=== PATIENT | male | born 1980 | race Caucasian/White ===

== ENCOUNTER 2016-12-02 23:00 | Emergency (ER) | payer OTHER ==
[~2016-12-02] VITALS: Ht 172.7 cm; Wt 63.5 kg
[2016-12-02] MEDS ORDERED: TRAZ100T4 (23:25)
[2016-12-02] MEDS ORDERED: NICO1DIS (23:25)
[2016-12-02] MEDS ORDERED: DIVA250T (23:25)
[2016-12-02] MEDS ORDERED: BUPR150T5 (23:25)
[2016-12-02] MEDS ORDERED: ACETGRA (23:25)
[2016-12-02] MEDS ORDERED: SERT-155 (23:25)
[2016-12-03] MEDS ORDERED: LIDOCAINE 2% MDV 20 ML VIAL SC ONE (00:15)
[2016-12-03] MEDS ORDERED: KEFL500C7 PO (00:53)
[2016-12-03] MEDS ORDERED: NORCO, ANEXSIA 5/325MG TABLET (HYDROcodone/ACETAMINOPHEN) PO ONE (01:00)
[2016-12-03 01:10] VITALS: BP 112/56
== END 2016-12-03 01:10 | disposition home or self-care (01) ==
LOC: M ED 23:37
DX: S41.101A Unspecified open wound of right upper arm, initial encounter (principal); S40.021A Contusion of right upper arm, initial encounter; W18.02XA Striking against glass with subsequent fall, initial encounter; Y92.019 Unspecified place in single-family (private) house as the place of occurrence of the external cause; Y93.89 Activity, other specified; Y99.9 Unspecified external cause status; F17.200 Nicotine dependence, unspecified, uncomplicated

== ENCOUNTER 2016-12-21 15:52 | Emergency (ER) | payer OTHER ==
[~2016-12-21] VITALS: Ht 172.7 cm; Wt 63.5 kg
[2016-12-21 15:52] VITALS: BP 134/83
[~2016-12-21 15:52] MED LIST: ACETGRA; BUPR150T5; DIVA250T; KEFL500C7 PO; NICO1DIS; SERT-155; TRAZ100T4
== END 2016-12-21 17:33 | disposition home or self-care (01) ==
LOC: M ED 17:30
DX: Z48.02 Encounter for removal of sutures (principal); G43.909 Migraine, unspecified, not intractable, without status migrainosus; F17.200 Nicotine dependence, unspecified, uncomplicated; Z79.899 Other long term (current) drug therapy; Z88.0 Allergy status to penicillin; Z88.6 Allergy status to analgesic agent

== ENCOUNTER → 2016-12-26 | Outpatient (CLI) | payer MEDICAID | LOC: M OUTALCOH 12:58 | PROVIDERS: ATTEND Psychiatry & Neurology Psychiatry | DX: F11.20 Opioid dependence, uncomplicated (principal); F12.20 Cannabis dependence, uncomplicated; F15.10 Other stimulant abuse, uncomplicated ==

== ENCOUNTER → 2016-12-27 | Outpatient (REF) | payer MEDICAID ==
[2016-12-27 12:49] LABS: BLOOD UREA NITROGEN 22 MG/DL (7-18); CREATININE FOR GFR 0.84 MG/DL (0.70-1.30); GLOMERULAR FILTRATION RATE > 60.0 (>60)
== END ==
LOC: M LABDRAW1 11:56
PROVIDERS: ATTEND Physical Medicine & Rehabilitation
DX: S83.241D Other tear of medial meniscus, current injury, right knee, subsequent encounter (principal); X58.XXXD Exposure to other specified factors, subsequent encounter; Y92.9 Unspecified place or not applicable; Y93.9 Activity, unspecified; Y99.9 Unspecified external cause status

== ENCOUNTER 2017-01-10 15:00 | Outpatient (RCR) | payer MEDICAID ==
[~2017-01-10 15:00] MED LIST changes: +KEFL500C17 PO; -KEFL500C7 PO; +NICO14DI24; -NICO1DIS; +TRAZ-136; -TRAZ100T4
== END 2017-01-11 ==
LOC: M OUTALCOH 15:00
PROVIDERS: ATTEND Psychiatry & Neurology Psychiatry
DX: F11.20 Opioid dependence, uncomplicated (principal); F12.20 Cannabis dependence, uncomplicated; F15.10 Other stimulant abuse, uncomplicated

== ENCOUNTER → 2017-02-11 | Outpatient (RCR) | payer MEDICAID ==
[~2017-02-11] MED LIST changes: +CIPR-249 PO; +NAPR500T3
== END ==
LOC: M OUTALCOH 01-17 14:00
PROVIDERS: ATTEND Psychiatry & Neurology Psychiatry
DX: F11.20 Opioid dependence, uncomplicated (principal); F12.20 Cannabis dependence, uncomplicated; F15.10 Other stimulant abuse, uncomplicated; F17.200 Nicotine dependence, unspecified, uncomplicated

== ENCOUNTER 2017-02-19 21:08 | Emergency (ER) | payer MEDICAID, OTHER ==
[~2017-02-19] VITALS: Ht 172.7 cm; Wt 72.7 kg
[~2017-02-19 21:08] MED LIST changes: -CIPR-249 PO; -NAPR500T3
[2017-02-19 21:14] VITALS: BP 134/83
[2017-02-19] MEDS ORDERED: NAPR500T3 (21:17)
[2017-02-19] MEDS ORDERED: CIPR-249 PO (21:55)
[2017-02-19] MEDS ORDERED: CIPROFLOXACIN 500 MG TAB PO ONE (22:00)
[2017-02-19] MEDS ORDERED: ADACEL/BOOSTRIX VACCINE (DIPHTH/PERTUSS/ACELL/TETANUS)0.5ML SYR (90715) IM ONE (22:00)
== END 2017-02-19 22:08 | disposition home or self-care (01) ==
LOC: M ED 21:08
DX: S91.331A Puncture wound without foreign body, right foot, initial encounter (principal); W45.0XXA Nail entering through skin, initial encounter; Y92.099 Unspecified place in other non-institutional residence as the place of occurrence of the external cause; Y93.01 Activity, walking, marching and hiking; Y99.9 Unspecified external cause status; F17.200 Nicotine dependence, unspecified, uncomplicated; Z79.899 Other long term (current) drug therapy; Z88.0 Allergy status to penicillin

== ENCOUNTER → 2017-03-14 | Outpatient (RCR) | payer MEDICAID ==
[~2017-03-14] MED LIST changes: +CIPR-249 PO; +NAPR500T3
== END ==
LOC: M OUTALCOH 02-13 10:41
PROVIDERS: ATTEND Psychiatry & Neurology Psychiatry
DX: F11.20 Opioid dependence, uncomplicated (principal); F12.20 Cannabis dependence, uncomplicated; F15.10 Other stimulant abuse, uncomplicated; F17.200 Nicotine dependence, unspecified, uncomplicated

== ENCOUNTER 2017-04-10 15:00 | Outpatient (RCR) | payer MEDICAID | END 2017-04-13 | LOC: M OUTALCOH 15:00 | PROVIDERS: ATTEND Psychiatry & Neurology Psychiatry | DX: F11.20 Opioid dependence, uncomplicated (principal); F12.20 Cannabis dependence, uncomplicated; F15.10 Other stimulant abuse, uncomplicated; F17.200 Nicotine dependence, unspecified, uncomplicated ==

== ENCOUNTER → 2017-06-13 | Outpatient (RCR) | payer MEDICAID | LOC: M OUTALCOH 05-16 15:46 | PROVIDERS: ATTEND Psychiatry & Neurology Psychiatry | DX: F11.20 Opioid dependence, uncomplicated (principal); F12.20 Cannabis dependence, uncomplicated; F15.10 Other stimulant abuse, uncomplicated; F17.200 Nicotine dependence, unspecified, uncomplicated ==

== ENCOUNTER 2017-06-14 10:13 | Outpatient (RCR) | payer SELFPAY, MEDICAID | END 2017-07-14 | LOC: M OUTALCOH 06-20 16:00 | DX: F11.20 Opioid dependence, uncomplicated (principal); F12.20 Cannabis dependence, uncomplicated; F15.10 Other stimulant abuse, uncomplicated; F17.200 Nicotine dependence, unspecified, uncomplicated ==

== ENCOUNTER 2017-07-22 09:18 | Outpatient (RCR) | payer MEDICAID | END 2017-08-14 | LOC: M OUTALCOH 08-05 08:00 | DX: F11.20 Opioid dependence, uncomplicated (principal); F12.20 Cannabis dependence, uncomplicated; F15.10 Other stimulant abuse, uncomplicated; F17.200 Nicotine dependence, unspecified, uncomplicated ==

== ENCOUNTER 2017-08-19 11:57 | Outpatient (RCR) | payer MEDICAID | END 2017-09-11 | LOC: M OUTALCOH 11:57 | DX: F11.20 Opioid dependence, uncomplicated (principal); F12.20 Cannabis dependence, uncomplicated; F15.10 Other stimulant abuse, uncomplicated; F17.200 Nicotine dependence, unspecified, uncomplicated ==

== ENCOUNTER 2017-09-17 21:37 | Emergency (ER) | payer MEDICAID | END 2017-09-17 23:23 | disposition left against medical advice (07) | LOC: M ED 21:37 | DX: Z53.29 Procedure and treatment not carried out because of patient's decision for other reasons (principal) ==

== ENCOUNTER → 2018-04-16 | Outpatient (CLI) | payer MEDICAID | LOC: M OUTALCOH 09:22 | DX: Z13.89 Encounter for screening for other disorder (principal); F12.20 Cannabis dependence, uncomplicated ==

== ENCOUNTER 2018-04-30 08:09 | Outpatient (RCR) | payer MEDICAID | END 2018-05-14 | LOC: M OUTALCOH 08:09 | DX: F11.20 Opioid dependence, uncomplicated (principal); F12.20 Cannabis dependence, uncomplicated; F17.200 Nicotine dependence, unspecified, uncomplicated ==

== ENCOUNTER 2018-05-21 08:00 | Outpatient (RCR) | payer MEDICAID | END 2018-06-13 | LOC: M OUTALCOH 05-23 14:00 | DX: F11.20 Opioid dependence, uncomplicated (principal); F12.20 Cannabis dependence, uncomplicated; F17.200 Nicotine dependence, unspecified, uncomplicated ==

== ENCOUNTER 2018-06-14 13:11 | Emergency (ER) | payer MEDICAID, OTHER, SELFPAY ==
[~2018-06-14] VITALS: Ht 172.7 cm; Wt 81.8 kg
[~2018-06-14 13:11] MED LIST changes: +BUSP10TA PO; +CYMB60CA3 PO; -DIVA250T; +DIVA250T67 PO; +NAPR-885; -NAPR500T3; -TRAZ-136; +TRAZ-163
[2018-06-14] MEDS ORDERED: IBUPROFEN 600 MG TAB PO ONE (13:45)
--- NOTE | 2018-06-14 14:17 | REP ---
Facial bone series six views: There is a nasal bone fracture. No air-fluid levels are identified within the paranasal sinuses. The orbital rims are unremarkable. The skull base and sella turcica are unremarkable. Impression: Nasal bone fracture. No other facial bone fractures are identified on plain films. Facial bone CT would be more sensitive depending on degree of clinical concern. Electronically Signed by Julio Cesar Henson MD 06/14/2018 02:08 P
[2018-06-14] MEDS ORDERED: IBUP-1022 PO (14:28)
[2018-06-14] MEDS ORDERED: KEFL500C17 PO (14:28)
[2018-06-14] MEDS ORDERED: OXYC1TAB23 PO ×2 (14:28→14:56)
[2018-06-14 15:12] VITALS: BP 148/102
== END 2018-06-14 15:27 | disposition home or self-care (01) ==
LOC: M ED 13:11
DX: S02.2XXA Fracture of nasal bones, initial encounter for closed fracture (principal); S00.83XA Contusion of other part of head, initial encounter; W00.1XXA Fall from stairs and steps due to ice and snow, initial encounter; Y92.098 Other place in other non-institutional residence as the place of occurrence of the external cause; Z88.0 Allergy status to penicillin; F17.210 Nicotine dependence, cigarettes, uncomplicated

== ENCOUNTER → 2018-11-05 | Outpatient (CLI) | payer OTHER ==
[~2018-11-05] MED LIST changes: +IBUP-1022 PO; +OXYC1TAB23 PO
[2018-11-05 09:13] LABS: APPEARANCE, URINE CLEAR (CLEAR); BACTERIA, URINE AUTO NEGATIVE (NEGATIVE); BILIRUBIN, URINE AUTO NEGATIVE (NEGATIVE); BLOOD, URINE BLOOD NEGATIVE (NEGATIVE); COLOR, URINE YELLOW (YELLOW); GLUCOSE, URINE (UA) AUTO NEGATIVE (NEGATIVE); KETONE, URINE AUTO NEGATIVE (NEGATIVE); LEUKOCYTE ESTERASE, URINE AUTO NEGATIVE (NEGATIVE); NITRITE, URINE AUTO NEGATIVE (NEGATIVE); PROTEIN, URINE AUTO NEGATIVE (NEGATIVE); RBC, URINE AUTO 2 /HPF (0-3); SPECIFIC GRAVITY URINE AUTO 1.015 (1.002-1.035); SQUAMOUS EPITHELIAL CELL UR AU 0 /HPF (0-6); UROBILINOGEN, URINE AUTO 0.2 mg/dL (0.0-2.0); WBC, URINE AUTO 0 /HPF (0-3)
[2018-11-05 09:19] LABS: BASO % 0.5 % (0.0-1.0); EOS # 0.1 10^3/uL (0.0-0.50); EOS % 2.3 % (0.0-3.0); HEMATOCRIT 40.5 % (42.0-52.0); HEMOGLOBIN 13.9 g/dl (13.5-17.5); LYMPH # 1.6 10^3/uL (1.5-4.5); MEAN CORPUSCULAR HEMOGLOBIN 31.4 pg (27.0-33.0); MEAN CORPUSCULAR HGB CONC 34.3 g/dl (32.0-36.5); MEAN CORPUSCULAR VOLUME 91.6 fl (80.0-96.0); MONO # 0.8 10^3/uL (0.0-0.8); MONO % 14.2 % (0.0-5.0); NEUTROPHILS # 3.1 10^3/uL (1.8-7.7); NEUTROPHILS % 54.8 % (36.0-66.0); PLATELET COUNT, AUTOMATED 213 10^3/uL (150-450); RED BLOOD COUNT 4.42 10^6/uL (4.30-6.10); WHITE BLOOD COUNT 5.6 10^3/uL (4.0-10.0)
[2018-11-05 10:08] LABS: ALBUMIN 3.8 GM/DL (3.2-5.2); ALT/SGPT 59 U/L (12-78); BILIRUBIN,TOTAL 0.3 MG/DL (0.2-1.0); BLOOD UREA NITROGEN 21 MG/DL (7-18); CARBON DIOXIDE LEVEL 27 MEQ/L (21-32); CHLORIDE LEVEL 105 MEQ/L (98-107); CREATININE FOR GFR 0.94 MG/DL (0.70-1.30); GLOMERULAR FILTRATION RATE > 60.0 (>60); GLUCOSE, FASTING 100 MG/DL (70-100); POTASSIUM SERUM 4.5 MEQ/L (3.5-5.1); SODIUM LEVEL 140 MEQ/L (136-145); TOTAL PROTEIN 7.4 GM/DL (6.4-8.2)
[2018-11-05 10:15] LABS: HEPATITIS B SURFACE ANTIBODY NEGATIVE (POSITIVE)
[2018-11-05 10:26] LABS: HEPATITIS B SURFACE ANTIGEN NEGATIVE (NEGATIVE)
[2018-11-07 08:52] LABS: HEPATITIS A IgG TOTAL Negative (Negative)
== END ==
LOC: M LAB 08:15
PROVIDERS: ATTEND Physician Assistant Medical
DX: Z02.2 Encounter for examination for admission to residential institution (principal)

== ENCOUNTER → 2018-11-14 | Outpatient (REF) | payer OTHER | LOC: M LAB REF 13:08 | PROVIDERS: ATTEND Physician Assistant | DX: J02.9 Acute pharyngitis, unspecified (principal) ==

== ENCOUNTER → 2018-12-02 | Outpatient (CLI) | payer OTHER ==
[2018-12-02 14:24] LABS: ALBUMIN 3.9 GM/DL (3.2-5.2); ALT/SGPT 49 U/L (12-78); BILIRUBIN,DIRECT < 0.1 MG/DL (0.0-0.2); BILIRUBIN,TOTAL 0.3 MG/DL (0.2-1.0); TOTAL PROTEIN 6.8 GM/DL (6.4-8.2)
[2018-12-03 10:41] LABS: HIV 1&2 SCREEN CENTAUR NEGATIVE (NEGATIVE)
[2018-12-04 14:10] LABS: HEPATITIS C QUANTITATION HCV Not Detected IU/mL (.)
== END ==
LOC: M LAB 12:45
PROVIDERS: ATTEND Internal Medicine Infectious Disease
DX: B19.20 Unspecified viral hepatitis C without hepatic coma (principal)

== ENCOUNTER 2019-03-19 18:10 | Emergency (ER) | payer MEDICAID, OTHER, SELFPAY ==
[~2019-03-19] VITALS: Ht 172.7 cm; Wt 91.7 kg
[2019-03-19] MEDS ORDERED: CLONI1TA PO (18:17)
[2019-03-19] MEDS ORDERED: GABA-845 PO (18:17)
[2019-03-19] MEDS ORDERED: PROZ40CA PO (18:17)
[2019-03-19 21:10] VITALS: BP 145/88
== END 2019-03-19 21:32 | disposition home or self-care (01) ==
LOC: M ED 18:10
DX: J00 Acute nasopharyngitis [common cold] (principal); H92.03 Otalgia, bilateral; J02.9 Acute pharyngitis, unspecified; B34.9 Viral infection, unspecified; J06.9 Acute upper respiratory infection, unspecified; F41.9 Anxiety disorder, unspecified; F32.9 Major depressive disorder, single episode, unspecified; F12.11 Cannabis abuse, in remission; F11.11 Opioid abuse, in remission; Z79.899 Other long term (current) drug therapy; Z88.0 Allergy status to penicillin

== ENCOUNTER → 2019-11-19 | Outpatient (REF) | payer OTHER ==
[~2019-11-19] MED LIST changes: +CLONI1TA PO; +GABA-845 PO; +PROZ40CA PO; -SERT-155; +SERT50TA29; -TRAZ-163; +TRAZ-257
[2019-11-19 12:45] LABS: BASO % 0.5 % (0.0-1.0); EOS # 0.1 10^3/uL (0.0-0.5); EOS % 1.6 % (0.0-3.0); HEMATOCRIT 46.8 % (42.0-52.0); HEMOGLOBIN 15.7 g/dl (13.5-17.5); LYMPH # 1.6 10^3/uL (1.5-5.0); LYMPH % 19.4 % (24.0-44.0); MEAN CORPUSCULAR HEMOGLOBIN 31.5 pg (27.0-33.0); MEAN CORPUSCULAR HGB CONC 33.5 g/dl (32.0-36.5); MONO # 0.8 10^3/uL (0.0-0.8); NEUTROPHILS # 5.6 10^3/uL (1.5-8.5); NEUTROPHILS % 68.3 % (36.0-66.0); PLATELET COUNT, AUTOMATED 255 10^3/uL (150-450); RED BLOOD COUNT 4.98 10^6/uL (4.30-6.10); WHITE BLOOD COUNT 8.2 10^3/uL (4.0-10.0)
[2019-11-19 12:52] LABS: ALBUMIN 4.3 GM/DL (3.2-5.2); ALT/SGPT 41 U/L (12-78); BILIRUBIN,TOTAL 0.2 MG/DL (0.2-1.0); BLOOD UREA NITROGEN 17 MG/DL (7-18); CALCIUM LEVEL 9.6 MG/DL (8.5-10.1); CARBON DIOXIDE LEVEL 27 MEQ/L (21-32); CHLORIDE LEVEL 104 MEQ/L (98-107); CHOLESTEROL LEVEL 242 MG/DL (<200); CHOLESTEROL RISK RATIO 6.205 (<5); CREATININE FOR GFR 0.96 MG/DL (0.70-1.30); FREE T4 1.02 NG/DL (0.76-1.46); GLOMERULAR FILTRATION RATE > 60.0 (>60); GLUCOSE, FASTING 129 MG/DL (70-100); HDL CHOLESTEROL 39 MG/DL (>40); LDL CHOLESTEROL 178 MG/DL (<100); NON-HDL-C 203 MG/DL; POTASSIUM SERUM 4.6 MEQ/L (3.5-5.1); SODIUM LEVEL 137 MEQ/L (136-145); THYROID STIMULATING HORMONE 0.579 uIU/ML (0.358-3.740); TRIGLYCERIDES LEVEL 126 MG/DL (<150)
== END ==
LOC: M PLALAB 10:49
PROVIDERS: ATTEND Physician Assistant Medical
DX: Z12.11 Encounter for screening for malignant neoplasm of colon (principal); F32.9 Major depressive disorder, single episode, unspecified; Z13.220 Encounter for screening for lipoid disorders

== ENCOUNTER 2020-01-01 11:08 | Emergency (ER) | payer OTHER ==
[~2020-01-01] VITALS: Ht 172.7 cm; Wt 87.1 kg
[2020-01-01] MEDS ORDERED: LISI2.5T2 (11:14)
--- NOTE | 2020-01-01 11:37 | REP ---
Portable chest x-ray: Single view. History: Chest pain. Comparison chest x-ray: December 08, 2012. Findings: The lungs are well inflated and clear. Pleural angles are sharp. Heart size is normal. Pulmonary vasculature is not increased. No significant bony abnormality is seen. Impression: No active disease. Electronically Signed by Jeff Gamboa MD 01/01/2020 11:29 A
[2020-01-01] MEDS ORDERED: KETOROLAC 30 MG/ML 1ML VIAL IV ONE (11:45)
[2020-01-01 12:04] LABS: BASO % 0.1 % (0.0-1.0); EOS % 0.1 % (0.0-3.0); HEMATOCRIT 42.1 % (42.0-52.0); HEMOGLOBIN 14.7 g/dl (13.5-17.5); LYMPH # 1.3 10^3/uL (1.5-5.0); LYMPH % 9.5 % (24.0-44.0); MEAN CORPUSCULAR HEMOGLOBIN 31.8 pg (27.0-33.0); MEAN CORPUSCULAR HGB CONC 34.9 g/dl (32.0-36.5); MEAN CORPUSCULAR VOLUME 91.1 fl (80.0-96.0); MONO # 1.3 10^3/uL (0.0-0.8); MONO % 9.5 % (0.0-5.0); NEUTROPHILS # 11.3 10^3/uL (1.5-8.5); NEUTROPHILS % 80.4 % (36.0-66.0); PLATELET COUNT, AUTOMATED 225 10^3/uL (150-450); RED BLOOD COUNT 4.62 10^6/uL (4.30-6.10); WHITE BLOOD COUNT 14.1 10^3/uL (4.0-10.0)
[2020-01-01] MEDS ORDERED: ASPIRIN 81 MG CHEW TABLET PO ONE (12:30)
[2020-01-01] MEDS ORDERED: ONDANSETRON 4MG/2ML VIAL IV ONE (12:30)
[2020-01-01 12:33] LABS: BLOOD UREA NITROGEN 16 MG/DL (7-18); CALCIUM LEVEL 9.3 MG/DL (8.5-10.1); CARBON DIOXIDE LEVEL 25 MEQ/L (21-32); CHLORIDE LEVEL 100 MEQ/L (98-107); CREATININE FOR GFR 0.96 MG/DL (0.70-1.30); GLOMERULAR FILTRATION RATE > 60.0 (>60); GLUCOSE, FASTING 138 MG/DL (70-100); POTASSIUM SERUM 3.8 MEQ/L (3.5-5.1); SODIUM LEVEL 132 MEQ/L (136-145)
[2020-01-01 12:44] LABS: ALT/SGPT 68 U/L (12-78); BILIRUBIN,DIRECT < 0.1 MG/DL (0.0-0.2); BILIRUBIN,TOTAL 0.3 MG/DL (0.2-1.0); LIPASE 86 U/L (73-393); NT-PRO BNP 727 PG/ML (<125); THYROID STIMULATING HORMONE 0.453 uIU/ML (0.358-3.740); TOTAL PROTEIN 7.8 GM/DL (6.4-8.2)
[2020-01-01] MEDS: MORPHINE 4 MG/ML 1ML VIAL/SYRINGE (J2270) IV PRN ×2 (12:54→16:40)
[2020-01-01] MEDS ORDERED: ISOVUE-370 76% 100ML VIAL As Ordered ONE (13:05)
[2020-01-01 13:31] LABS: CPK CREATINE PHOSPHOKINASE 6610 U/L (39-308); MB/CK RELATIVE INDEX 3.03 (< OR =4)
[2020-01-01] MEDS: NITROGLYCERIN 0.4 MG SUBL TABLET SL PRN ×2 (13:49→13:57)
[2020-01-01] MEDS ORDERED: HEPARIN DRIP 25,000 UNITS in IV 1 EA IV SCH (13:57)
[2020-01-01] MEDS ORDERED: CLOPIDOGREL 300 MG TAB (PLAVIX) PO STA (13:58)
[2020-01-01] MEDS ORDERED: HEPARIN SOD (PORCINE) 5000UNITS/ML 1ML VIAL/SYRINGE IV ONE (14:00)
[2020-01-01] MEDS ORDERED: NS 1,000 ML IV SCH (14:15)
[2020-01-01 14:59] LABS: AMPHETAMINES LEVEL URINE NEGATIVE (NEGATIVE); BARBITURATES URINE NEGATIVE (NEGATIVE); BENZODIAZEPINES URINE NEGATIVE (NEGATIVE); CANNABINOIDS URINE NEGATIVE (NEGATIVE); COCAINE METABOLITE URINE NEGATIVE (NEGATIVE); METHADONE URINE NEGATIVE (NEGATIVE); OPIATES URINE POSITIVE (NEGATIVE); PHENCYCLIDINE URINE NEGATIVE (NEGATIVE)
--- NOTE | 2020-01-01 14:59 | REP ---
CT PULMONARY ANGIOGRAM: With IV contrast. HISTORY: Chest pain COMPARISON STUDIES: No comparison study. CONTRAST DOSE: 75 mL of Isovue [address] TECHNIQUE: Helical scanning is acquired and overlapping 1.5 mm and contiguous 3 mm axial images are reformatted. In addition, maximum intensity projection and multiplanar re-formation images are generated in sagittal and coronal imaging projections. CT PULMONARY ANGIOGRAPHIC FINDINGS: There is good opacification of the pulmonary arterial tree. No filling defect or vessel cutoff is seen to suggest pulmonary embolism. The aorta is less well opacified but there is no evidence of aneurysm or dissection. No pleural or pericardial effusion is seen. There is no evidence of hilar or mediastinal mass or adenopathy. Lung davies are clear. No evidence of pulmonary mass or significant pulmonary nodule. No significant bony abnormality. Adrenal glands are normal. There is a small accessory splenule. The visualized upper abdominal structures are otherwise unremarkable. IMPRESSION: Negative CT pulmonary angiogram. No CT evidence of pulmonary embolus. No active disease. Electronically Signed by Jeff Gamboa MD 01/01/2020 05:45 P
[2020-01-01] MEDS ORDERED: NITROGLYCERIN 2% OINT 1 GM *U/D* PKT TOP ONE (16:00)
[2020-01-01 16:13] VITALS: BP 201/131
[2020-01-01 16:14] LABS: INR 1.01
[2020-01-01 16:45] VITALS: BP 183/110
--- NOTE | 2020-01-02 08:02 | ECGEPIP ---
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
--- NOTE | 2020-01-02 08:05 | ECGEPIP ---
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
--- NOTE | 2020-01-02 15:06 | ECHO ---
DATE OF SERVICE: 01/01/2020 REFERRING PROVIDER: Dr. Morales LOCATION: Room 15, emergency department. REASON FOR THE STUDY: Chest pain. 2D MEASUREMENTS: IVS: 1.2 cm LV: 5.3 cm LVPW: 1.2 cm LA: 3.1 cm Aorta: 4.0 cm IVC: 1.9 cm DOPPLER MEASUREMENTS: Peak velocity across the aortic valve: 0.94 m/s Peak velocity across the LVOT: 0.71 m/s Mitral E: 0.60, Mitral A: 0.44 with a ratio of 1.4 Tricuspid valve velocity: 2.2 m/s 2D COMMENTS: 1. Normal left ventricular size, wall thickness, and overall low normal global left ventricular systolic function. The estimated left ventricular systolic ejection fraction is 50-55%. The basal and the mid segments of the inferior/posterior wall appear to be markedly hypokinetic. 2. Normal left atrium. Normal right atrium and right ventricle. 3. The atrial septum appeared to be normal without evidence of defect or shunt. 4. Mildly dilated aortic root at 4.0 cm. 5. No pericardial effusion seen. 6. The aortic valve, mitral valve, tricuspid valve, and pulmonic valve appeared to be normal. The proximal pulmonary artery branches were not well visualized. 7. The inferior vena cava was normal in size, central venous pressure is most likely normal. 8. No pericardial effusion seen. DOPPLER: It detects trace to mild mitral regurgitation and trace tricuspid regurgitation. The calculated pulmonary artery systolic pressure was normal. Assessment of the left ventricular diastolic function appeared to be normal. IMPRESSION: 1. Low normal global left ventricular systolic function with regional wall motion abnormalities. Assessment of the left ventricular diastolic function appeared to be normal. 2. Trace to mild mitral regurgitation. 3. Trace tricuspid regurgitation with a normal calculated pulmonary artery systolic pressure. MTDD
== END 2020-01-01 16:48 | disposition short-term general hospital (02) ==
LOC: M ED 11:08
DX: I21.4 Non-ST elevation (NSTEMI) myocardial infarction (principal); R00.1 Bradycardia, unspecified; F32.9 Major depressive disorder, single episode, unspecified; F19.11 Other psychoactive substance abuse, in remission; Z79.899 Other long term (current) drug therapy; Z88.0 Allergy status to penicillin
CPT/HCPCS: 71045; 71275; 80047; 80048; 80076; 80307; 82550; 82553; 83690; 83880; 84443; 85025; 85610; 85652; 93005; 93041; 93306; 94760; 96361; 96374; 96375; 96376; 99285; J1644; J1885; J2270; J2405; Q9967; U0002

== ENCOUNTER → 2020-01-12 | Outpatient (REF) | payer OTHER ==
[~2020-01-12] MED LIST changes: +LISI2.5T2
[2020-01-12 17:30] LABS: BASO # 0.1 10^3/uL (0.0-0.2); BASO % 0.6 % (0.0-1.0); EOS # 0.2 10^3/uL (0.0-0.5); EOS % 2.4 % (0.0-3.0); HEMATOCRIT 39.4 % (42.0-52.0); HEMOGLOBIN 13.3 g/dl (13.5-17.5); LYMPH # 2.5 10^3/uL (1.5-5.0); LYMPH % 30.5 % (24.0-44.0); MEAN CORPUSCULAR HGB CONC 33.8 g/dl (32.0-36.5); MEAN CORPUSCULAR VOLUME 94.7 fl (80.0-96.0); MONO # 1.1 10^3/uL (0.0-0.8); MONO % 12.9 % (0.0-5.0); NEUTROPHILS # 4.4 10^3/uL (1.5-8.5); NEUTROPHILS % 53.4 % (36.0-66.0); PLATELET COUNT, AUTOMATED 336 10^3/uL (150-450); RED BLOOD COUNT 4.16 10^6/uL (4.30-6.10); WHITE BLOOD COUNT 8.2 10^3/uL (4.0-10.0)
[2020-01-12 18:03] LABS: ALT/SGPT 47 U/L (12-78); BLOOD UREA NITROGEN 14 MG/DL (7-18); CARBON DIOXIDE LEVEL 30 MEQ/L (21-32); CHLORIDE LEVEL 101 MEQ/L (98-107); CK-MB VALUE MASS < 1.0 NG/ML (<3.6); CPK CREATINE PHOSPHOKINASE 197 U/L (39-308); CREATININE FOR GFR 0.98 MG/DL (0.70-1.30); GLOMERULAR FILTRATION RATE > 60.0 (>60); GLUCOSE, FASTING 82 MG/DL (70-100); POTASSIUM SERUM 4.3 MEQ/L (3.5-5.1); SODIUM LEVEL 136 MEQ/L (136-145)
[2020-01-12 18:04] LABS: ALBUMIN 3.8 GM/DL (3.2-5.2); BILIRUBIN,TOTAL 0.2 MG/DL (0.2-1.0); MB/CK RELATIVE INDEX 0.51 (< OR =4); TOTAL PROTEIN 7.6 GM/DL (6.4-8.2); TROPONIN I 0.81 NG/ML (< 0.10)
== END ==
LOC: M SFHCPLAZ 15:33
PROVIDERS: ATTEND Physician Assistant Medical
DX: I25.118 Atherosclerotic heart disease of native coronary artery with other forms of angina pectoris (principal)

== ENCOUNTER → 2021-01-26 | Outpatient (CLI) | payer OTHER ==
[~2021-01-26] MED LIST changes: +GABA-283 PO; -GABA-845 PO
[2021-01-26 15:22] LABS: BASO % 0.3 % (0.0-1.0); EOS # 0.2 10^3/uL (0.0-0.5); EOS % 2.2 % (0.0-3.0); HEMATOCRIT 41.5 % (42.0-52.0); LYMPH # 2.1 10^3/uL (1.5-5.0); LYMPH % 24.7 % (24.0-44.0); MEAN CORPUSCULAR HEMOGLOBIN 31.5 pg (27.0-33.0); MEAN CORPUSCULAR HGB CONC 33.7 g/dl (32.0-36.5); MEAN CORPUSCULAR VOLUME 93.5 fl (80.0-96.0); MONO # 1.1 10^3/uL (0.0-0.8); MONO % 12.6 % (2.0-8.0); NEUTROPHILS # 5.2 10^3/uL (1.5-8.5); NEUTROPHILS % 59.9 % (36.0-66.0); PLATELET COUNT, AUTOMATED 194 10^3/uL (150-450); RED BLOOD COUNT 4.44 10^6/uL (4.30-6.10); WHITE BLOOD COUNT 8.6 10^3/uL (4.0-10.0)
[2021-01-26 15:56] LABS: ALBUMIN 4.1 GM/DL (3.2-5.2); ALT/SGPT 48 U/L (12-78); BILIRUBIN,TOTAL 0.3 MG/DL (0.2-1.0); BLOOD UREA NITROGEN 13 MG/DL (7-18); CALCIUM LEVEL 8.9 MG/DL (8.5-10.1); CARBON DIOXIDE LEVEL 29 MEQ/L (21-32); CHLORIDE LEVEL 105 MEQ/L (98-107); CHOLESTEROL LEVEL 124 MG/DL (<200); CREATININE FOR GFR 0.93 MG/DL (0.70-1.30); GLOMERULAR FILTRATION RATE > 60.0 (>60); GLUCOSE, FASTING 94 MG/DL (70-100); HDL CHOLESTEROL 40 MG/DL (>40); LDL CHOLESTEROL 63 MG/DL (<100); NON-HDL-C 84 MG/DL; POTASSIUM SERUM 4.1 MEQ/L (3.5-5.1); SODIUM LEVEL 138 MEQ/L (136-145); TOTAL PROTEIN 7.3 GM/DL (6.4-8.2); TRIGLYCERIDES LEVEL 107 MG/DL (<150)
== END ==
LOC: M PLALAB 12:40
PROVIDERS: ATTEND Physician Assistant Medical
DX: Z13.220 Encounter for screening for lipoid disorders (principal); I10 Essential (primary) hypertension

== ENCOUNTER 2021-07-06 10:18 | Emergency (ER) | payer OTHER ==
[~2021-07-06] VITALS: Ht 172.7 cm; Wt 87.2 kg
[~2021-07-06 10:18] MED LIST changes: -CYMB60CA3 PO; +CYMB60CA4 PO; -LISI2.5T2; +LISI2.5T9
[2021-07-06] MEDS ORDERED: ATOR80TA59 (10:28)
[2021-07-06] MEDS ORDERED: CLOP75TA2 (10:28)
[2021-07-06] MEDS ORDERED: FLUO10CA16 (10:28)
--- NOTE | 2021-07-06 11:42 | REP ---
INDICATION: pain after lifting furniture COMPARISON: 01/01/2020 TECHNIQUE: PA and lateral. FINDINGS: The mediastinum and cardiac silhouette are normal. The lung davies are clear and without acute consolidation, effusion, or pneumothorax. The skeletal structures are intact and normal. IMPRESSION: No acute cardiopulmonary process. <Electronically signed by Aramis Clement > 07/06/21 [id number]
--- NOTE | 2021-07-06 11:46 | REP ---
INDICATION: pain after lifting furniture COMPARISON: None. TECHNIQUE: Three views of the right hemithorax. FINDINGS: Multiple views of the hemithorax demonstrates no acute rib fracture/injury or pathology. IMPRESSION: Normal rib series. <Electronically signed by Aramis Clement > 07/06/21 [id number]
[2021-07-06] MEDS ORDERED: TRAM50TA2 PO (13:18)
[2021-07-06] MEDS: ACETAMINOPHEN TAB 650MG DOSE (2X325MG) PO ONE (13:58)
[2021-07-06 13:59] VITALS: BP 131/66
[2021-07-06] MEDS: traMADol 50 MG TAB PO ONE (13:59)
--- NOTE | 2021-07-07 20:20 | ECGEPIP ---
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 Order Number: [id number] Reading MD: Russell Bro Measurements Intervals [place] Rate: 77 P: 30 [place]: 144 QRS: -21 QRSD: 84 T: -18 QT: 384 QTc: 434 Interpretive Statements Sinus rhythm with occasional premature ventricular complexes Nonspecific T wave abnormality SIMILAR TO 01/01/20 Electronically Signed on 07-07-2021 20:20:09 EST by Russell Bro
== END 2021-07-06 14:00 | disposition home or self-care (01) ==
LOC: M ED 10:18
DX: S20.211A Contusion of right front wall of thorax, initial encounter (principal); X50.0XXA Overexertion from strenuous movement or load, initial encounter; Y92.89 Other specified places as the place of occurrence of the external cause; Y93.89 Activity, other specified; Y99.8 Other external cause status; I25.10 Atherosclerotic heart disease of native coronary artery without angina pectoris; I25.2 Old myocardial infarction; I11.9 Hypertensive heart disease without heart failure; F17.210 Nicotine dependence, cigarettes, uncomplicated; Z79.899 Other long term (current) drug therapy; Z88.0 Allergy status to penicillin; Z95.1 Presence of aortocoronary bypass graft

== ENCOUNTER → 2021-11-15 | Outpatient (CLI) | payer OTHER ==
[~2021-11-15] MED LIST changes: +ATOR80TA59; +BUPR-71; -BUPR150T5; +CLOP75TA2; +FLUO10CA18; +TRAM50TA2 PO
[2021-11-15 13:44] LABS: BASO % 0.4 % (0.0-1.0); EOS # 0.1 10^3/uL (0.0-0.5); HEMATOCRIT 43.6 % (42.0-52.0); HEMOGLOBIN 14.8 g/dl (13.5-17.5); LYMPH # 2.2 10^3/uL (1.5-5.0); LYMPH % 24.7 % (24.0-44.0); MEAN CORPUSCULAR HEMOGLOBIN 30.9 pg (27.0-33.0); MEAN CORPUSCULAR HGB CONC 33.9 g/dl (32.0-36.5); MONO # 1.1 10^3/uL (0.0-0.8); MONO % 11.8 % (2.0-8.0); NEUTROPHILS # 5.6 10^3/uL (1.5-8.5); NEUTROPHILS % 61.7 % (36.0-66.0); PLATELET COUNT, AUTOMATED 219 10^3/uL (150-450); RED BLOOD COUNT 4.79 10^6/uL (4.30-6.10)
[2021-11-15 19:38] LABS: ALBUMIN 4.1 GM/DL (3.2-5.2); ALT/SGPT 41 U/L (12-78); BILIRUBIN,TOTAL 0.3 MG/DL (0.2-1.0); BLOOD UREA NITROGEN 14 MG/DL (7-18); CALCIUM LEVEL 9.8 MG/DL (8.5-10.1); CARBON DIOXIDE LEVEL 28 MEQ/L (21-32); CHLORIDE LEVEL 103 MEQ/L (98-107); CHOLESTEROL LEVEL 135 MG/DL (<200); CREATININE FOR GFR 0.84 MG/DL (0.70-1.30); FREE T4 0.95 NG/DL (0.76-1.46); GLOMERULAR FILTRATION RATE > 60.0 (>60); GLUCOSE, FASTING 90 MG/DL (70-100); HDL CHOLESTEROL 45 MG/DL (>40); LDL CHOLESTEROL 67 MG/DL (<100); NON-HDL-C 90 MG/DL; POTASSIUM SERUM 4.4 MEQ/L (3.5-5.1); SODIUM LEVEL 138 MEQ/L (136-145); TOTAL PROTEIN 7.4 GM/DL (6.4-8.2); TRIGLYCERIDES LEVEL 116 MG/DL (<150)
== END ==
LOC: M PLALAB 11:29
PROVIDERS: ATTEND Physician Assistant Medical
DX: F32.9 Major depressive disorder, single episode, unspecified (principal); I10 Essential (primary) hypertension; Z13.220 Encounter for screening for lipoid disorders

== ENCOUNTER 2022-02-19 11:29 | Emergency (ER) | payer OTHER ==
[~2022-02-19] VITALS: Ht 172.7 cm; Wt 91.4 kg
[2022-02-19 11:29] VITALS: BP 134/85
[~2022-02-19 11:29] MED LIST changes: +METH-1165 PO
== END 2022-02-20 07:49 | disposition home or self-care (01) ==
LOC: M ED 11:29
DX: Z53.21 Procedure and treatment not carried out due to patient leaving prior to being seen by health care provider (principal)

== ENCOUNTER → 2022-08-28 | Outpatient (CLI) | payer OTHER | LOC: M SLEEP HO 11:02 | PROVIDERS: ATTEND Physician Assistant Medical | DX: R40.0 Somnolence (principal); G47.9 Sleep disorder, unspecified ==

== ENCOUNTER 2022-10-31 22:26 | Emergency (ER) | payer OTHER ==
[~2022-10-31] VITALS: Ht 172.7 cm; Wt 86.4 kg
[2022-10-31] MEDS ORDERED: NITR0.4S14 SL (22:40)
[2022-10-31] MEDS ORDERED: ASPI81TA26 PO (22:40)
[2022-10-31] MEDS ORDERED: METO1TAB87 PO (22:40)
[2022-10-31 23:07] LABS: BASO % 0.4 % (0.0-1.0); EOS # 0.1 10^3/uL (0.0-0.5); EOS % 1.5 % (0.0-3.0); HEMATOCRIT 39.3 % (42.0-52.0); HEMOGLOBIN 13.8 g/dl (13.5-17.5); LYMPH % 21.4 % (24.0-44.0); MEAN CORPUSCULAR HEMOGLOBIN 32.2 pg (27.0-33.0); MEAN CORPUSCULAR HGB CONC 35.1 g/dl (32.0-36.5); MEAN CORPUSCULAR VOLUME 91.6 fl (80.0-96.0); MONO # 0.9 10^3/uL (0.0-0.8); MONO % 10.1 % (2.0-8.0); NEUTROPHILS # 6.1 10^3/uL (1.5-8.5); NEUTROPHILS % 66.4 % (36.0-66.0); PLATELET COUNT, AUTOMATED 189 10^3/uL (150-450); RED BLOOD COUNT 4.29 10^6/uL (4.30-6.10); WHITE BLOOD COUNT 9.3 10^3/uL (4.0-10.0)
[2022-10-31 23:19] LABS: INR 0.97; PROTHROMBIN TIME 13.1 SECONDS (12.5-14.5)
[2022-10-31] MEDS ORDERED: KETOROLAC 30 MG/ML 1ML VIAL IV ONE (23:25)
[2022-10-31 23:30] LABS: LIPASE 49 U/L (12-53)
[2022-10-31 23:32] LABS: ALBUMIN 3.8 G/DL (3.2-5.2); ALKALINE PHOSPHATASE 109 U/L (46-116); ALT/SGPT 34 U/L (7.0-40); AST/SGOT 27 U/L (<34); BILIRUBIN,DIRECT < 0.1 MG/DL (<0.4); BILIRUBIN,TOTAL 0.2 MG/DL (0.3-1.2); CK-MB VALUE MASS < 1.0 NG/ML (<3.6); TOTAL PROTEIN 6.9 G/DL (5.7-8.2)
[2022-10-31 23:51] LABS: CPK CREATINE PHOSPHOKINASE 252 U/L (46-171); MB/CK RELATIVE INDEX 0.39 (< OR =4)
[2022-11-01 00:22] LABS: BLOOD UREA NITROGEN 18 MG/DL (9-23); CALCIUM LEVEL 8.9 MG/DL (8.5-10.1); CARBON DIOXIDE LEVEL 28 MMOL/L (20-31); CHLORIDE LEVEL 105 MMOL/L (98-107); CREATININE FOR GFR 0.93 MG/DL (0.70-1.30); GLOMERULAR FILTRATION RATE > 60.0 (>60); GLUCOSE, FASTING 108 MG/DL (60-100); POTASSIUM SERUM 3.9 MMOL/L (3.5-5.1); SODIUM LEVEL 140 MMOL/L (136-145)
[2022-11-01] MEDS ORDERED: ISOVUE-370 76% 100ML VIAL As Ordered ONE (00:32)
[2022-11-01 02:00] VITALS: BP 110/57
[2022-11-01 02:07] LABS: CPK CREATINE PHOSPHOKINASE 203 U/L (46-171)
[2022-11-01 02:08] LABS: BLOOD UREA NITROGEN 17 MG/DL (9-23); CALCIUM LEVEL 8.2 MG/DL (8.5-10.1); CARBON DIOXIDE LEVEL 29 MMOL/L (20-31); CHLORIDE LEVEL 99 MMOL/L (98-107); CK-MB VALUE MASS < 1.0 NG/ML (<3.6); GLOMERULAR FILTRATION RATE > 60.0 (>60); GLUCOSE, FASTING 87 MG/DL (60-100); MB/CK RELATIVE INDEX 0.49 (< OR =4); POTASSIUM SERUM 3.6 MMOL/L (3.5-5.1); SODIUM LEVEL 132 MMOL/L (136-145)
[2022-11-01 02:10] LABS: THYROID STIMULATING HORMONE 1.309 uIU/ML (0.55-4.78)
[2022-11-01] MEDS ORDERED: NAPR-837 PO (02:38)
[2022-11-01] MEDS ORDERED: METH-1165 PO (02:38)
== END 2022-11-01 02:51 | disposition home or self-care (01) ==
LOC: M ED 22:26
DX: I25.10 Atherosclerotic heart disease of native coronary artery without angina pectoris (principal); I25.2 Old myocardial infarction; F12.10 Cannabis abuse, uncomplicated; Z86.19 Personal history of other infectious and parasitic diseases; F17.200 Nicotine dependence, unspecified, uncomplicated; Z95.5 Presence of coronary angioplasty implant and graft; Z98.61 Coronary angioplasty status
CPT/HCPCS: 71045; 71275; 80048; 80076; 82550; 82553; 83690; 83880; 84443; 85025; 85610; 93005; 93041; 94760; 96374; 99285; J1885; Q9967

== ENCOUNTER → 2023-09-12 | Outpatient (REF) | payer OTHER ==
[~2023-09-12] MED LIST changes: +ASPI81TA26 PO; -GABA-283 PO; +GABA-284 PO; +METO1TAB87 PO; +NAPR-837 PO; +NITR0.4S14 SL
[2023-09-12 18:28] LABS: BASO # 0.1 10^3/uL (0.0-0.2); BASO % 0.6 % (0.0-1.0); EOS # 0.1 10^3/uL (0.0-0.5); EOS % 1.8 % (0.0-3.0); HEMATOCRIT 41.2 % (42.0-52.0); HEMOGLOBIN 14.1 g/dl (13.5-17.5); LYMPH % 25.6 % (24.0-44.0); MEAN CORPUSCULAR HEMOGLOBIN 31.9 pg (27.0-33.0); MEAN CORPUSCULAR HGB CONC 34.2 g/dl (32.0-36.5); MEAN CORPUSCULAR VOLUME 93.2 fl (80.0-96.0); MONO # 0.8 10^3/uL (0.0-0.8); MONO % 9.9 % (2.0-8.0); NEUTROPHILS # 4.9 10^3/uL (1.5-8.5); NEUTROPHILS % 61.8 % (36.0-66.0); PLATELET COUNT, AUTOMATED 227 10^3/uL (150-450); RED BLOOD COUNT 4.42 10^6/uL (4.30-6.10)
[2023-09-12 18:51] LABS: ALBUMIN 3.7 G/DL (3.2-5.2); ALKALINE PHOSPHATASE 80 U/L (46-116); ALT/SGPT 23 U/L (7.0-40); AST/SGOT 17 U/L (<34); BILIRUBIN,TOTAL < 0.2 MG/DL (0.3-1.2); BLOOD UREA NITROGEN 18 MG/DL (9-23); CALCIUM LEVEL 8.9 MG/DL (8.5-10.1); CARBON DIOXIDE LEVEL 28 MMOL/L (20-31); CHLORIDE LEVEL 105 MMOL/L (98-107); CHOLESTEROL LEVEL 211 MG/DL (<200); CHOLESTEROL RISK RATIO 5.92 (<5); CREATININE FOR GFR 1.29 MG/DL (0.70-1.30); GLOMERULAR FILTRATION RATE > 60.0 (>60); GLUCOSE, FASTING 84 MG/DL (60-100); HDL CHOLESTEROL 35.6 MG/DL (>40); LDL CHOLESTEROL 98.4 MG/DL (<100); NON-HDL-C 175.4 MG/DL; POTASSIUM SERUM 4.4 MMOL/L (3.5-5.1); PSA SCREENING 0.19 NG/ML (< 4.00); SODIUM LEVEL 137 MMOL/L (136-145); TOTAL PROTEIN 6.6 G/DL (5.7-8.2); TRIGLYCERIDES LEVEL 385 MG/DL (<150)
[2023-09-12 18:55] LABS: THYROID STIMULATING HORMONE 1.118 uIU/ML (0.55-4.78)
[2023-09-12 18:56] LABS: FREE T4 0.89 NG/DL (0.89-1.76)
[2023-09-12 19:33] LABS: HEPATITIS C VIRUS ABY INDEX 0.02 INDEX (<0.8)
== END ==
LOC: M LABDRAWP 17:13
PROVIDERS: ATTEND Physician Assistant Medical
DX: I10 Essential (primary) hypertension (principal); F32.9 Major depressive disorder, single episode, unspecified; Z12.5 Encounter for screening for malignant neoplasm of prostate; B19.20 Unspecified viral hepatitis C without hepatic coma; Z13.220 Encounter for screening for lipoid disorders

== ENCOUNTER 2024-01-12 18:43 | Emergency (ER) | payer OTHER ==
[~2024-01-12] VITALS: Ht 172.7 cm; Wt 87.7 kg
[~2024-01-12 18:43] MED LIST changes: +FLUO-290; -FLUO10CA18
[2024-01-12 18:44] VITALS: BP 129/86; TEMP 97.4; O2SAT 97
== END 2024-01-12 20:46 | disposition left against medical advice (07) ==
LOC: M ED 18:43
DX: Z53.21 Procedure and treatment not carried out due to patient leaving prior to being seen by health care provider (principal)

== ENCOUNTER → 2024-02-10 | Outpatient (REF) | payer OTHER | LOC: M LAB REF 12:29 | PROVIDERS: ATTEND Physician Assistant | DX: J02.9 Acute pharyngitis, unspecified (principal) ==

== ENCOUNTER → 2024-04-09 | Outpatient (REF) | payer OTHER | LOC: M SFHCPLAZ 09:47 | PROVIDERS: ATTEND Physician Assistant Medical | DX: Z13.220 Encounter for screening for lipoid disorders (principal); I10 Essential (primary) hypertension ==

== ENCOUNTER → 2024-04-09 | Outpatient (CLI) | payer OTHER ==
[2024-04-09 11:10] LABS: BASO % 0.4 % (0.0-1.0); EOS # 0.1 10^3/uL (0.0-0.5); EOS % 1.2 % (0.0-3.0); HEMATOCRIT 42.4 % (42.0-52.0); HEMOGLOBIN 14.8 g/dl (13.5-17.5); LYMPH % 25.3 % (24.0-44.0); MEAN CORPUSCULAR HGB CONC 34.9 g/dl (32.0-36.5); MEAN CORPUSCULAR VOLUME 91.6 fl (80.0-96.0); MONO % 13.2 % (2.0-8.0); NEUTROPHILS # 4.6 10^3/uL (1.5-8.5); NEUTROPHILS % 59.5 % (36.0-66.0); PLATELET COUNT, AUTOMATED 209 10^3/uL (150-450); RED BLOOD COUNT 4.63 10^6/uL (4.30-6.10); WHITE BLOOD COUNT 7.7 10^3/uL (4.0-10.0)
[2024-04-09 11:30] LABS: ALKALINE PHOSPHATASE 104 U/L (46-116); ALT/SGPT 42 U/L (7.0-40); AST/SGOT 22 U/L (<34); BILIRUBIN,TOTAL 0.4 MG/DL (0.3-1.2); BLOOD UREA NITROGEN 15 MG/DL (9-23); CALCIUM LEVEL 9.7 MG/DL (8.5-10.1); CARBON DIOXIDE LEVEL 26 MMOL/L (20-31); CHLORIDE LEVEL 106 MMOL/L (98-107); CREATININE FOR GFR 0.83 MG/DL (0.70-1.30); GLOMERULAR FILTRATION RATE > 60.0 (>60); GLUCOSE, FASTING 93 MG/DL (60-100); POTASSIUM SERUM 4.5 MMOL/L (3.5-5.1); SODIUM LEVEL 137 MMOL/L (136-145); TOTAL PROTEIN 7.3 G/DL (5.7-8.2)
== END ==
LOC: M PLALAB 10:02
PROVIDERS: ATTEND Physician Assistant Medical
DX: Z13.220 Encounter for screening for lipoid disorders (principal); I10 Essential (primary) hypertension